=== PATIENT | male | born 1980 | race Caucasian/White ===

== ENCOUNTER 2021-04-16 09:02 | Emergency (ER) | payer MEDICARE, MEDICAID, SELFPAY ==
[2021-04-16 09:09] VITALS: BP 118/80; PULSE 81; RESP 18; TEMP 36.3; O2SAT 98; BMI 30.7
--- NOTE | 2021-04-16 09:22 | ED_ITS ---
HPI - Fall General Chief Complaint: Fall Stated Complaint: fell down 4 stairs Time Seen by Provider: 04/16/21 09:22 Source: patient Mode of arrival: ambulatory Limitations: no limitations History of Present Illness HPI Narrative: Patient is a 40 year old male presenting to the emergency department today with back and elbow pain after falling down stairs. Patient states that he was walking and slipped down some steps. States that he now has back pain and elbow pain. Patient denies any loss of consciousness. Patient states that he does not want any imaging as he does not believe anything is broken, he would just like something for the soreness and a note for work. Patient denies any dizziness, lightheadedness, abdominal pain, nausea, vomiting, fever, chills, blurry vision, double vision, loss of vision, chest pain, difficulty breathing, shortness of breath, night sweats, pain with urination, increased urinary frequency, increased urinary urgency, blood in his urine or stool, syncope or a near syncopal episode, bowel incontinence, bladder incontinence, bowel retention, bladder retention, or any other complaints at this time. MD complaint: fall Onset (ago): hour(s) Fall from: standing Fall witnessed: no Place fall occurred: home Loss of consciousness: none Prolonged down time: no Symptoms prior to fall: none Context: tripped/slipped Location of injury: back Severity: mild Severity scale (1-10): 3 Quality: dull Associated symptoms (after fall): denies Related Data Previous Rx's Medication Instructions Recorded cyclobenzaprine 10 mg tablet 10 mg PO TID PRN 7 Days #21 tab 04/16/21 Allergies Allergy/AdvReac Type Severity Reaction Status Date / Time codeine [CODEINE] Allergy Unknown HIVES Verified 04/16/21 09:08 Review of Systems Verdana 4l Constitutional: Verdana 4d Verdana 4d Constitutional: Verdana 4d Reports no additional constitutional complaints, Denies chills, Denies fever(s) and Denies night sweats Verdana 4l Eyes: Verdana 4d Verdana 4d Eyes: Verdana 4d Reports no additional eye complaints, Denies blurry vision, Denies change in vision, Denies diplopia, Denies eye discharge, Denies loss of vision and Denies eye pain Verdana 4l ENT: Verdana 4d Denies dizziness Verdana 4l Cardiovascular: Verdana 4d Verdana 4d Cardiovascular: Verdana 4d Reports no additional cardiovascular complaints, Denies chest pain, Denies lightheadedness, Denies Loss of Consciousness and Denies dyspnea Verdana 4l Respiratory: Verdana 4d Verdana 4d Respiratory: Verdana 4d Reports no additional respiratory complaints and Denies dyspnea Verdana 4l Gastrointestinal: Verdana 4d Verdana 4d Gastrointestinal: Verdana 4d Reports no additional gastrointestinal complaints, Denies abdominal pain, Denies melena, Denies hematochezia, Denies change in bowel habits and Denies change in stool character Verdana 4l Genitourinary: Verdana 4d Verdana 4d Genitourinary: Verdana 4d Reports no additional male genitourinary complaints, Denies hematuria, Denies oliguria, Denies difficulty urinating, Denies dysuria, Denies urinary frequency, Denies urinary hesitancy, Denies urinary incontinenceincontinence and Denies urinary urgency Musculoskeletal: Musculoskeletal: Reports no additional musculoskeletal complaints, Reports back pain, Denies numbness and Denies tingling Neurologic: Denies dizziness, Denies loss of vision, Denies numbness and Denies tingling Psychiatric: Psychiatric: Reports no additional psychiatric complaints Endocrine: Endocrine: Reports no additional endocrine complaints Hematologic/Lymphatic: Hematologic/Lymphatic: Reports no additional hematologic/lymphatic complaints Allergic/Immunologic: Allergic/Immunologic: Reports no additional allergic/immunologic complaints [facility] Past Medical History Attestation statement: The following information was validated with the patient. 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 Resp 18 04/16/21 09:09 BP 118/80 04/16/21 09:09 Pulse Ox 98 04/16/21 09:09 BMI result Body Mass Index 30.7 Const: General: cooperative, no acute distress, alert and awake Nutritional Appearance: well nourished Orientation/consciousness: patient oriented x3 Limitations: no limitations HENMT: Head: Yes normal to inspection and Yes atraumatic Ears: hearing grossly normal bilaterally and external ears normal General nose exam: Normal external nose present, no nasal discharge noted and no epistaxis Face and sinus: Yes normal facial exam, No abrasion and No laceration Mouth: Normal oral and palatal mucosa present, no drooling and no muffled voice Eyes: General: appearance normal, both eyes and all related structures Periorbital: periorbital findings normal Eyelids: Yes eyelids normal Conjunctivae: conjunctivae normal Pupils: Equal, round and reactive pupils present EOM: EOMs intact bilaterally Neck: Neck: Yes normal visual inspection, Yes full ROM and Yes no lymphadenopathy Chest: Chest palpation & inspection: normal inspection of the chest Resp: Effort & Inspection: normal respiratory effort and able to speak in complete sentences Auscultation: clear to auscultation bilaterally Cardio: Rhythm: regular rhythm Heart sounds: S1 normal heart sound present GI: Inspection: Yes normal to inspection Neuro: General: patient oriented x3 and moves all extremities Cranial nerves: Yes Equal, round and reactive pupils present Cognition (Neuro): normal cognition Motor exam (neuro): 5/5 motor strength present throughout Sensory Exam: Normal double simultaneous stimulation for sensation Coordination: [id number] test normal Extrem: General: Yes normal to inspection, Yes full ROM and Yes capillary refill normal Psych: Appearance: grossly normal Mental Status: mental status grossly normal Affect: normal affect Attitude: cooperative Thought process: Normal thought process present Thought content: Normal thought content present Insight: Good insight present (Psych) MDM - Fall MDM Narrative Medical decision making narrative: Patient is a 40 year old male presenting to the emergency department today with back pain and elbow pain after a fall. Patient's physical exam was unremarkable. I explained my physical exam findings to the patient. I answered all questions asked by the patient. Patient received PO Flexeril which he stated helped his symptoms significantly. I stressed the importance of the patient taking his medication as prescribed. I stressed the importance of the patient following up with his primary care provider. I stressed the importance of the patient returning to the emergency department immediately if his symptoms were to worsen or if he were to develop any numbness, tingling, dizziness, shortness of breath, difficulty breathing, chest pain, blurry vision, loss of vision, nausea, vomiting, abdominal pain, fever, chills, back pain, or any other complaints. Patient verbalized agreement and understanding with this treatment plan and discharge. Differential Diagnosis Differential diagnosis: Unlikely dislocation (fall, back pain, muscle pain) Medical Records Attestation: I reviewed the patient's medical records. Discharge Plan Discharge Clinical Impression: Fall Patient Disposition: Home, Self-Care Instructions: Fall Prevention (ED) Additional Instructions: Follow up with your primary care provider. Return to the emergency department immediately if your symptoms worsen or if you develop any dizziness, shortness of breath, difficulty breathing, chest pain, blurry vision, loss of vision, nausea, vomiting, abdominal pain, fever, chills, back pain, or any other complaints. Prescriptions: New cyclobenzaprine 10 mg tablet 10 mg PO TID PRN (Reason: back pain) 7 Days Qty: 21 0RF Stand Alone Forms: Work/School Release Interventions: ED Discharge Assessment Last Done: 04/16/21 09:47 Discharge Date/Time: 04/16/21 09:48 Print Language: Iranian
[2021-04-16] MEDS: Cyclobenzaprine HCl 10 MG TABLET PO (09:44)
== END 2021-04-16 09:48 | disposition home or self-care (01) ==
PROVIDERS: Emergency Provider Emergency Medicine
DX: M54.9 Dorsalgia, unspecified (principal); M25.529 Pain in unspecified elbow; Z91.81 History of falling
CPT/HCPCS: 99283; 99284

== ENCOUNTER 2022-09-23 08:50 | Emergency (ER) | payer MEDICARE, MEDICAID, SELFPAY ==
[2022-09-23 09:07] VITALS: BP 120/60; PULSE 69; RESP 18; TEMP 36.9; O2SAT 99; BMI 29.2
--- NOTE | 2022-09-23 09:17 | ED.GENADULT ---
HPI - General Adult General Chief complaint: Dental/Oral Stated complaint: dental pain facial swelling Time Seen by Provider: 09/23/22 09:11 Source: patient Mode of arrival: ambulatory Limitations: no limitations History of Present Illness HPI narrative: In is a 42-year-old male with no past medical history presenting with left upper molar dental pain for the past week. Patient reports fever chills, nausea, dizziness, pain radiating up to his head and down his neck. Patient reports that he was sent to the emergency department from work. Patient reports that he attempted to get a an appointment with the dentist but was unable to do so. Patient was told that the dentist told him to come here to get antibiotics before he would be able to be seen by the dentist. Patient reports 10/10 pain, constant. Patient denies night sweats, weight changes, vomiting, chest pain, shortness of breath, numbness, tingling, vision changes, headache, head trauma Related Data Previous Rx's Medication Instructions Recorded cyclobenzaprine 10 mg tablet 10 mg PO TID PRN back pain 7 days 04/16/21 #21 tabs amoxicillin 875 mg-potassium 1 tab PO BID 10 days #20 tabs 09/23/22 clavulanate 125 mg tablet naproxen 500 mg tablet 500 mg PO BID #14 tabs 09/23/22 Allergies Allergy/AdvReac Type Severity Reaction Status Date / Time codeine [CODEINE] Allergy Unknown HIVES Verified 05/23/21 13:26 Review of Systems Review of Systems: Constitutional : No Weight loss, + Fever, + Chills, No Fatigue, No Malaise ENT/Mouth : +dental pain No sore throat, No Rhinorrhea Eyes: No Eye Pain, No Swelling, No Redness Cardiovascular : No Chest Pain, No SOB, No Dyspnea on Exertion, No Orthopnea, No Edema, No Palpitations Respiratory : No Cough, No Sputum, No Wheezing Gastrointestinal : + Nausea, No Vomiting, No Diarrhea, No Constipation, No abdominal Pain, No Hematochezia, No Melena Genitourinary : No Dysuria, No Urinary Frequency, No Hematuria, Musculoskeletal : No joint pain, No Myalgias, No Joint Swelling Skin : No Skin Lesions, No rash Neuro : No Weakness, No Numbness, +Dizziness, + Headache All other systems reviewed and are negative Yes all other systems are reviewed and are negative PMFSH Past Medical History Attestation statement: The following information was validated with the patient. Source: old records reviewed and nursing notes reviewed Medical History Anxiety No known health problems No known health problems Social History Social History (System 05/23/21 @ 13:26 by Coral Coreas) Advance Directives: No Advance Directives Information Provided: No Physical Exam ED Vital Signs: Vital Signs - 24 hr 09/23/22 09:07 Temperature 98.4 F Pulse Rate 69 Respiratory Rate 18 Blood Pressure 120/60 Pulse Oximetry 99 Oxygen Delivery Method Room Air BMI result Body Mass Index 29.2 vss Appearance: Alert.? Oriented X3.? No acute distress.? Head: Normocephalic, atraumatic, no step-offs or deformities Eyes: Pupils equal, round and reactive to light.? ENT: Pharynx normal, patent airway, speaking in full sentences controlling secretions well. Mild swelling to L cheek w/o overlying fluctuance. Mild errythema to L cheek. TTP to tooth 14-15 with errythema to a/c gum ? developing abcess however no fluctuance at this time. No trismus. Poor dention throughout dental caries noted, hallitosis and multiples fx to teeth. CVS: Normal heart rate and rhythm.? Pulses normal.? Respiratory: No respiratory distress.? Breath sounds normal.? Abdomen: Soft and nontender.? Skin: Skin warm and dry.? Normal skin color.? Normal skin turgor.? Extremities: No lower extremity edema.? No calf ttp. 5/5 strength to bilateral upper and lower extremities Back: No midline tenderness, no C-spine tenderness, full range of motion, no CVA tenderness bilaterally Neuro: Oriented X 3.? No motor deficit.? No sensory deficit. CN 2-12 intact Course Reevaluation(s) Reevaluation #1: Patient will be discharged home with Augmentin and naproxen for pain. Advised to follow-up with dentist as soon as possible. Educated patient on diagnosis and treatment plan, answered all question, patient verbalizes understanding. At this time patient will be discharged home, advised to return with new or worsening symptoms. Educated on worrisome signs and symptoms and when to return. At this time I feel comfortable discharge home. Time: 10:09 Medical Decision Making Medical Decision Making [facility] Narrative: 42-year-old male presents with left upper molar pain for 1 week with associated facial swelling on the left side. Physical exam Pharynx normal, patent airway, speaking in full sentences controlling secretions well. Mild swelling to L cheek w/o overlying fluctuance. Mild errythema to L cheek. TTP to tooth 14-15 with errythema to a/c gum ? developing abcess however no fluctuance at this time. No trismus. Poor dention throughout dental caries noted, hallitosis and multiples fx to teeth. history and physical exam consistent with poor dentition, dental caries, gingivitis, and possible dental fracture with early/ developing dental abscess. L cheek swelling likely cellulitis again no signs of abscess. Unlikely abscess, Necrotizing infection, David's angina. plan: discharge home with antibiotics and pain management. Differential Diagnosis Differential Diagnoses: The differential diagnosis associated with the presentation includes history and physical exam consistent with poor dentition, dental caries, gingivitis, and possible dental fracture with early/ developing dental abscess. L cheek swelling likely cellulitis again no signs of abscess. Unlikely abscess, Necrotizing infection, David's angina. Admission/Observation Consideration of admission/observation: Escalation of care including admission/observation considered Not indicated Tests considered The following testing was considered but not selected: labs and imaging not indicated low supsion for necrotizing infefction or abscess. Core Measures AMI core measures followed: Yes Measure exclusions: not indicated Critical Care Time Critical Care Time Critical Care Time: No Discharge Plan Discharge Clinical Impression: Toothache Patient Disposition: Home, Self-Care Instructions: Toothache (ED) Additional Instructions: Take your medications as prescribed. If you were prescribed antibiotics today, it is important that you take your medication to their entirety, do not skip any doses, do not finish them early. Follow-up with your primary care provider this week. Return to the emergency department with new or worsening symptoms. In case of emergency call 911 Prescriptions: New amoxicillin-pot clavulanate 875-125 mg tablet 1 tab PO BID 10 Days Qty: 20 0RF naproxen 500 mg tablet 500 mg PO BID Qty: 14 0RF No Action cyclobenzaprine 10 mg tablet 10 mg PO TID PRN (Reason: back pain) 7 Days Qty: 21 0RF Stand Alone Forms: Work/School Release
== END 2022-09-23 10:03 | disposition home or self-care (01) ==
PROVIDERS: Emergency Provider Emergency Medicine
DX: K08.89 Other specified disorders of teeth and supporting structures (principal)
CPT/HCPCS: 99282; 99283

== ENCOUNTER 2023-03-24 12:40 | Emergency (ER) | payer MEDICARE, MEDICAID, SELFPAY ==
--- NOTE | 2023-03-24 12:50 | ED.GENADULT ---
HPI - General Adult General Chief complaint: Upper Respiratory Symptoms Stated complaint: body aches dizzy Time Seen by Provider: 03/24/23 13:23 Source: patient Mode of arrival: ambulatory Limitations: no limitations History of Present Illness HPI narrative: Patient is a 42 year old assigned male at with no reported medical history presenting to the emergency department today with fever and chills. Patient states that over the last 2 days he has had fever and chills. Patient denies any dizziness, lightheadedness, abdominal pain, nausea, vomiting, blurry vision, double vision, loss of vision, chest pain, difficulty breathing, shortness of breath, back pain, night sweats, pain with urination, increased urinary frequency, increased urinary urgency, blood in his urine or stool, syncope or a near syncopal episode, recent trauma or falls, bowel incontinence, bladder incontinence, bowel retention, bladder retention, or any other complaints at this time. Onset (ago): day(s) (2) Severity: mild Severity scale (1-10): 2 Relieving factors: none Exacerbating factors: none Associated symptoms: fever/chills Treatments prior to arrival: other (tylenol) Related Data Previous Rx's Medication Instructions Recorded cyclobenzaprine 10 mg tablet 10 mg PO TID PRN back pain 7 days 04/16/21 #21 tabs amoxicillin 875 mg-potassium 1 tab PO BID 10 days #20 tabs 09/23/22 clavulanate 125 mg tablet naproxen 500 mg tablet 500 mg PO BID #14 tabs 09/23/22 oseltamivir 75 mg capsule (Tamiflu) 75 mg PO DAILY 5 days #5 caps 03/24/23 Allergies Allergy/AdvReac Type Severity Reaction Status Date / Time codeine [CODEINE] Allergy Unknown HIVES Verified 03/24/23 12:51 Review of Systems Constitutional: Constitutional: Reports no additional constitutional complaints, Reports chills, Reports fever(s) and Denies night sweats Eyes: Eyes: Reports no additional eye complaints, Denies blurry vision, Denies change in vision, Denies diplopia, Denies eye discharge, Denies loss of vision and Denies eye pain ENT: Denies dizziness Cardiovascular: Cardiovascular: Reports no additional cardiovascular complaints, Denies chest pain, Denies lightheadedness, Denies Loss of Consciousness and Denies dyspnea Respiratory: Respiratory: Reports no additional respiratory complaints and Denies dyspnea Gastrointestinal: Gastrointestinal: Reports no additional gastrointestinal complaints, Denies abdominal pain, Denies melena, Denies hematochezia, Denies change in bowel habits and Denies change in stool character Genitourinary: Genitourinary: Reports no additional male genitourinary complaints, Denies hematuria, Denies oliguria, Denies difficulty urinating, Denies dysuria, Denies urinary frequency, Denies urinary hesitancy, Denies urinary incontinence and Denies urinary urgency Musculoskeletal: Musculoskeletal: Reports no additional musculoskeletal complaints, Denies numbness and Denies tingling Neurologic: Denies dizziness, Denies loss of vision, Denies numbness and Denies tingling Psychiatric: Psychiatric: Reports no additional psychiatric complaints Endocrine: Endocrine: Reports no additional endocrine complaints Hematologic/Lymphatic: Hematologic/Lymphatic: Reports no additional hematologic/lymphatic complaints Allergic/Immunologic: Allergic/Immunologic: Reports no additional allergic/immunologic complaints PMFSH Past Medical History Attestation statement: The following information was validated with the patient. Source: old records reviewed and nursing notes reviewed Onset Date is defined in the Problem List Problems that require an onset date and time if occurred within 24 hrs of arrival to the ED Aortic Dissection and Rupture; Neurologic impairment; Cardiopulmonary Arrest; Endotracheal Intubation; Insertion or Replacement of Mechanical Circulatory Assist Device Medical History Anxiety No known health problems No known health problems Social History Social History Advance Directives: No Advance Directives Information Provided: No Physical Exam ED Vital Signs: Vital Signs - 24 hr 03/24/23 12:51 Temperature 98.4 F Pulse Rate 77 Respiratory Rate 18 Blood Pressure 104/70 Pulse Oximetry 97 Oxygen Delivery Method Room Air BMI result Body Mass Index 28.6 Const General: cooperative, no acute distress, alert and awake Nutritional Appearance: well nourished Orientation/consciousness: patient oriented x3 Limitations: no limitations HENMT Head: Yes normal to inspection and Yes atraumatic Ears: hearing grossly normal bilaterally and external ears normal General nose exam: Normal external nose present, no nasal discharge noted and no epistaxis Face and sinus: Yes normal facial exam, No abrasion and No laceration Mouth: Normal oral and palatal mucosa present, no drooling and no muffled voice Eyes General: appearance normal, both eyes and all related structures Periorbital: periorbital findings normal Eyelids: Yes eyelids normal Conjunctivae: conjunctivae normal Pupils: Equal, round and reactive pupils present EOM: EOMs intact bilaterally Neck Neck: Yes normal visual inspection, Yes full ROM and Yes no lymphadenopathy Chest Chest palpation & inspection: normal inspection of the chest Resp Effort & Inspection: normal respiratory effort and able to speak in complete sentences GI Inspection: Yes normal to inspection Neuro General: patient oriented x3 and moves all extremities Cranial nerves: Yes Equal, round and reactive pupils present Cognition (Neuro): normal cognition Motor exam (neuro): 5/5 motor strength present throughout Sensory Exam: Normal double simultaneous stimulation for sensation Coordination: [id number] test normal Extrem General: Yes normal to inspection, Yes full ROM and Yes capillary refill normal Psych Appearance: grossly normal Mental Status: mental status grossly normal Affect: normal affect Attitude: cooperative Thought process: Normal thought process present Thought content: Normal thought content present Insight: Good insight present (Psych) Course Course Course Narrative: RME:?42 yo male here w/ body aches, chills, dizziness, loss of taste x2 days. taking tylenol and ibuprofen at home. last dose tylenol at 1100 [address]. felt like this 2 yrs ago when he had covid. Has not taken a covid test. plan for serology. Full HPI, ROS and PE to be performed by the primary ED provider. Medical Decision Making Medical Decision Making [facility] Narrative: Patient is a 42 year old assigned male at with no reported medical history presenting to the emergency department today with fever and chills. Patient's physical exam was unremarkable. Patient's COVID-19 test was negative. Patient's influenza test was positive. I explained my physical exam findings as well as all test results to the patient. I answered all questions asked by the patient. I stressed the importance of the patient taking his medication as prescribed. I stressed the importance of the patient following up with his primary care provider. I stressed the importance of the patient returning to the emergency department immediately if his symptoms were to worsen or if he were to develop any dizziness, shortness of breath, difficulty breathing, chest pain, blurry vision, loss of vision, nausea, vomiting, abdominal pain, fever, chills, back pain, or any other complaints. Patient verbalized agreement and understanding with this treatment plan and discharge. Differential Diagnosis Differential Diagnoses: The differential diagnosis associated with the presentation includes Influenza COVID-19 Viral illness URI Fever Chills Admission/Observation Consideration of admission/observation: Escalation of care including admission/observation considered Patient would have been admitted to the hospital had his work up had any findings where hospital admission was appropriate and his clinical presentation warranted hospital admission. Lab Data [facility] Lab Attestation statement: I reviewed the patient's lab results. My interpretation of these results are in the [facility] Rationale portion of this note. Labs: Lab Results 03/24/23 Range/Units 12:58 COVID-19 (TONY) Negative (Negative) COVID-19 Clin Com See Note Influenza Type A (VICKY) Positive A (Negative) Influenza Type B (VICKY) Negative (Negative) Influenza A & B Note See Note Prescription Management I considered prescription management with: Antiviral (patient prescribed tamiflu.) Discharge Plan Discharge Clinical Impression: Influenza Patient Disposition: Home, Self-Care Instructions: Influenza (DC) Additional Instructions: Follow up with your primary care provider. Return to the emergency department immediately if your symptoms worsen or if you develop any dizziness, shortness of breath, difficulty breathing, chest pain, blurry vision, loss of vision, nausea, vomiting, abdominal pain, fever, chills, back pain, or any other complaints. Prescriptions: New oseltamivir [Tamiflu] 75 mg capsule 75 mg PO DAILY 5 Days Qty: 5 0RF No Action cyclobenzaprine 10 mg tablet 10 mg PO TID PRN (Reason: back pain) 7 Days Qty: 21 0RF amoxicillin-pot clavulanate 875-125 mg tablet 1 tab PO BID 10 Days Qty: 20 0RF naproxen 500 mg tablet 500 mg PO BID Qty: 14 0RF Referrals: [facility] [place] Family Medicine [Provider Group] (Call to establish and follow up with a primary care provider. If you already have a primary care provider, please follow up with them.) [facility] [place] Primary [facility] [Provider Group] (Call to establish and follow up with a primary care provider. If you already have a primary care provider, please follow up with them.) [facility] [place] Primary [facility] [Provider Group] (Call to establish and follow up with a primary care provider. If you already have a primary care provider, please follow up with them.) Stand Alone Forms: Work/School Release Interventions: ED Discharge Assessment Last Done: 03/24/23 13:48 Discharge Date/Time: 03/24/23 13:48 Print Language: Spanish
[2023-03-24 12:51] VITALS: BP 104/70; PULSE 77; RESP 18; TEMP 36.9; O2SAT 97; BMI 28.6
[2023-03-24 13:18] LABS: COVID-19 Test Negative (Negative); IDNOW Serial# 152EDE1D
[2023-03-24 13:19] LABS: IDNOW Serial# 08D9AD1C; Influenza A Positive (Negative); Influenza B2 Negative (Negative)
== END 2023-03-24 13:48 | disposition home or self-care (01) ==
PROVIDERS: Physician Assistant Medical; Emergency Provider Emergency Medicine
DX: J10.1 Influenza due to other identified influenza virus with other respiratory manifestations (principal); M79.10 Myalgia, unspecified site; R42 Dizziness and giddiness; Z11.52 Encounter for screening for COVID-19; Z20.828 Contact with and (suspected) exposure to other viral communicable diseases
CPT/HCPCS: 87502; 87635; 99282; 99283

== ENCOUNTER 2023-07-22 13:32 | Emergency (ER) | payer OTHER, SELFPAY ==
--- NOTE | ~2023-07-22 | XR_ITS ---
EXAMINATION: LEFT ANKLE, LEFT FOOT CLINICAL INFORMATION: Ankle and foot pain COMPARISON: None available. TECHNIQUE: 3 views left ankle, 3 views left foot FINDINGS: There is a small avulsion fracture arising from the distal cuboid with associated soft tissue swelling laterally. The ankle and foot otherwise appear normal with no additional fractures. XR/XR foot LT 2V IMPRESSION: Small avulsion fracture distal cuboid.
--- NOTE | ~2023-07-22 | XR_ITS ---
EXAMINATION: LEFT ANKLE, LEFT FOOT CLINICAL INFORMATION: Ankle and foot pain COMPARISON: None available. TECHNIQUE: 3 views left ankle, 3 views left foot FINDINGS: There is a small avulsion fracture arising from the distal cuboid with associated soft tissue swelling laterally. The ankle and foot otherwise appear normal with no additional fractures. XR/XR ankle LT min 3V IMPRESSION: Small avulsion fracture distal cuboid.
[2023-07-22 14:15] VITALS: BP 113/78; PULSE 99; RESP 18; TEMP 36.8; O2SAT 98; BMI 29.3
--- NOTE | 2023-07-22 14:19 | ED_ITS ---
HPI - General Adult General Chief complaint: Extremity Injury, Lower Stated complaint: L Foot Pain Work Injury 07/22/23 Source: patient Mode of arrival: ambulatory Limitations: no limitations History of Present Illness HPI narrative: 42 yold male with pmh of anxiety presents to the ED for left foot pain. Patient was at work and than he rolled his ankle and heard a crack in his foot. Patient denies falling unto the ground. Related Data Previous Rx's ?Medication ?Instructions ?Recorded cyclobenzaprine 10 mg tablet 10 mg PO TID PRN back pain 7 days 04/16/21 #21 tabs amoxicillin 875 mg-potassium 1 tab PO BID 10 days #20 tabs 09/23/22 clavulanate 125 mg tablet naproxen 500 mg tablet 500 mg PO BID #14 tabs 09/23/22 oseltamivir 75 mg capsule (Tamiflu) 75 mg PO DAILY 5 days #5 caps 03/24/23 naproxen 500 mg tablet 500 mg PO BID PRN pain 7 days #14 07/22/23 tabs Allergies Allergy/AdvReac Type Severity Reaction Status Date / Time codeine [CODEINE] Allergy Unknown HIVES Verified 07/22/23 14:19 Review of Systems 2 Review of Systems: left foot/ankle pain Yes all other systems are reviewed and are negative [facility] Past Medical History Medical History Anxiety No known health problems No known health problems Physical Exam ED Vital Signs: Vital Signs - 24 hr 07/22/23 14:15 Temperature 98.3 F Pulse Rate 99 Respiratory Rate 18 Blood Pressure 113/78 Pulse Oximetry 98 Oxygen Delivery Method Room Air BMI result Body Mass Index 29.3 Const General: cooperative, healthy appearing, comfortable, no acute distress, well developed, alert, awake and Physically active Orientation/consciousness: oriented to person, oriented to place, oriented to time and patient oriented x3 HENMT Head: Yes normal to inspection, Yes No palpable skull fracture present, Yes normocephalic and Yes atraumatic Eyes General: appearance normal, both eyes and all related structures Neck Neck: Yes normal visual inspection, Yes full ROM, Yes no lymphadenopathy, Yes no meningeal signs, Yes trachea midline, Yes supple, No anterior neck swelling and No tender Chest Chest palpation & inspection: normal inspection of the chest and normal palpation of entire chest wall Resp Effort & Inspection: normal respiratory effort and able to speak in complete sentences Auscultation: clear to auscultation bilaterally Cardio Jugular venous distension: no JVD Heart sounds: S1 normal heart sound present and S2 normal heart sound present GI Inspection: Yes normal to inspection and No abdominal wall ecchymosis Palpation (GI): Soft to palpation, not firm, nontender, no guarding and not rigid General: No CVA tenderness and Yes no CVA tenderness Back/Spine/Pelvis Back: no CVA tenderness, No CVA tenderness and No back tenderness Skin General skin exam: no rashes or lesions noted, elasticity normal and turgor normal Neuro General: oriented to person, oriented to place, oriented to time, patient oriented x3, gait normal, tone normal, moves all extremities, Normal light touch and pain sensation, no meningeal signs, no focal motor deficits, CN's II-XI intact bilaterally and normal sensation to monofilament Cranial nerves: Yes CN's II-XII intact bilaterally Extrem General: Yes normal to inspection, Yes full ROM and Yes capillary refill normal Ankle/foot/toe images: 2 1. positive for tenderness and ecchymosis. negative for crepitus,redness, coldness, hotness, or profuse deformity. Motor, neuro, and vascular exam is intact. 2. positive for tenderness and ecchymosis. negative for crepitus,redness, coldness, hotness, or profuse deformity. Motor, neuro, and vascular exam is intact. Psych Appearance: grossly normal, well kempt and not disheveled Course Course Course Narrative: RME: Triage done by NOE Hansen. 42 yold male presents to the ED for left ankle pain. patinet stated twisted ankle at home. Left ankle positive for swelling and ecchymosis with tenderness. pedal pulses intact. patient able to ambulate. xrays ordered Medications Administered Discontinued Medications Generic Name Dose Route Start Last Admin Trade Name Freq PRN Reason Stop Dose Admin Ibuprofen 800 mg 07/22/23 14:18 07/22/23 14:22 Ibuprofen 800 Mg Tablet PO 07/22/23 14:19 800 mg ONCE ONE Administration Medical Decision Making Medical Decision Making MDM Narrative: RME: 42-year-old male presents to ED for left foot pain after stepping on wood rolling left ankle. Patient denies fall to the ground or hitting head. Patient denies any other complaint. Physical exam positive for left lateral malleolus swelling. Ankle x-ray negative. Foot x-ray shows positive avulsion cuboid fracture. Patient tolerate weight-bearing. Patient is placed in walking boot and given crutches. Patient will be discharged with pain medication. Motor neurovascular exam intact extremity. Patient informed to follow-up with orthopedic surgery. Negative for compartment syndrome, cellulitis, dvt, or arterial occlusion Differential Diagnosis Differential Diagnoses: The differential diagnosis associated with the presentation includes (Ankle foot fracture. Dislocation) Admission/Observation Consideration of admission/observation: Escalation of care including admission/observation considered Independent Interpretation I performed an independent interpretation of an: Plain X-Ray Radiology Impression Discussion of test interpretation with radiology: I have reviewed the radiologist's reading. Independent Historian Clinical information obtained from an independent historian. History obtained from or confirmed by: Other (Patient) External Record Review External record reviewed: Other (Prior visits) Prescription Management I considered prescription management with: Pain Medication Discharge Plan Discharge Clinical Impression: Avulsion fracture, Foot fracture, left Patient Disposition: Home, Self-Care Instructions: Foot Fracture in Adults (ED) Additional Instructions: Recommend follow-up with orthopedic surgeon and were connection. Return to the ED for severe pain, increased bluish black discoloration, increased swelling, calf pain, chest pain, shortness of breath, redness, or any other concerning symptoms. Prescriptions: New naproxen 500 mg tablet 500 mg PO BID PRN (Reason: pain) 7 Days Qty: 14 0RF No Action cyclobenzaprine 10 mg tablet 10 mg PO TID PRN (Reason: back pain) 7 Days Qty: 21 0RF oseltamivir [Tamiflu] 75 mg capsule 75 mg PO DAILY 5 Days Qty: 5 0RF amoxicillin-pot clavulanate 875-125 mg tablet 1 tab PO BID 10 Days Qty: 20 0RF naproxen 500 mg tablet 500 mg PO BID Qty: 14 0RF Referrals: [facility] [place] [facility] [Provider Group] (Avulsion cuboid fracture) Work Connection [Outside] (Left avulsion cuboid fracture) Stand Alone Forms: Work/School Release Interventions: ED Discharge Assessment Last Done: 07/22/23 18:59 Discharge Date/Time: 07/22/23 19:01 Print Language: [place]
[2023-07-22] MEDS: Ibuprofen 800 MG TABLET PO (14:22)
[2023-07-22 18:59] VITALS: BP 113/78; PULSE 99; RESP 18; TEMP 36.8; O2SAT 98
== END 2023-07-22 19:01 | disposition home or self-care (01) ==
PROVIDERS: Emergency Provider Emergency Medicine
DX: S92.212A Displaced fracture of cuboid bone of left foot, initial encounter for closed fracture (principal); M79.672 Pain in left foot; X50.1XXA Overexertion from prolonged static or awkward postures, initial encounter; Y93.89 Activity, other specified; Y92.812 Truck as the place of occurrence of the external cause; Y99.0 Civilian activity done for income or pay
CPT/HCPCS: 73610; 73620; 99283

== ENCOUNTER → 2023-07-23 13:03 | Outpatient (BNVA) | payer OTHER, SELFPAY | PROVIDERS: Visit Provider Physician Assistant Medical | DX: S92.215A Nondisplaced fracture of cuboid bone of left foot, initial encounter for closed fracture (principal); X58.XXXA Exposure to other specified factors, initial encounter | CPT/HCPCS: 99203 ==

== ENCOUNTER 2023-07-25 14:07 | Outpatient (AMB) | payer OTHER, SELFPAY ==
--- NOTE | 2023-07-25 14:11 | A.OFFVIS_ITS ---
Vital Signs 07/25/23 14:16 Height 5 ft 11 in Weight 210 lb BMI 29.3 Intake Visit Reasons: FC- L Foot Pain Work Injury 07/22/23 Intake Note: Rosas is a 42 year old male who presents today for a evaluation of his left foot injury, DOI 07/22/23. Patient reports he was at work and rolled his ankle when he heard a crack in his left foot. Patient denies falling. Currently is feeling better, however he is still having dull pain on the lateral aspect of the left foot. He finds relief when he is wearing his boot. Allergies codeine [CODEINE] Allergy (Unknown, Verified 07/25/23 14:14) HIVES HPI HPI FC- L Foot Pain Work Injury 07/22/23: Details: 42-year-old male who presents in the office today, as a new patient, for an evaluation of left foot pain. Patient presented to the ED on 07/22/2023 status post a work-related injury when he stepped on wood, rolled his ankle and heard a crack in his left foot. X-rays were obtained. He was placed in a walking boot and given crutches. Patient was seen by work connection who referred him to Orthopedics. While in the office today the patient reports he was at work when he rolled his ankle, and he heard a crack. He denies any fall. He states he is able to walk with the boot and has comfort but feels unstable out of the it. He reports a dull pain on the lateral aspect of the left foot. Patient is currently out of work. 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 Tenderness to palpation over the medial and lateral malleolus. Able to slightly dorsiflex and plantarflex but is limited due to pain. Resolving ecchymosis along the dorsal aspect of the left foot. Sensation intact. Pedal pulse intact. Assessment & Plan Assessment & Plan (1) Moderate left ankle sprain: Code(s): S93.402A - Sprain of unspecified ligament of left ankle, initial encounter Category: Medical Qualifiers: Encounter type: initial encounter Qualified Code(s): S93.402A - Sprain of unspecified ligament of left ankle, initial encounter Plan Mr. Mccormack is a 42-year-old male who presents in the office today, as a new patient, for an evaluation of left foot pain. Patient presented to the ED on 07/22/2023 status post a work-related injury when he stepped on wood, rolled his ankle and heard a crack in his left foot. X-rays were obtained. He was placed in a walking boot and given crutches. Patient was seen by work connection who referred him to Orthopedics. While in the office today the patient reports he was at work when he rolled his ankle, and he heard a crack. He denies any fall. He states he is able to walk with the boot and has comfort but feels unstable out of the it. He reports a dull pain on the lateral aspect of the left foot. Patient is currently out of work. The patient will remain in the boot for an additional 3 weeks. An order for physical therapy was placed today. He was given a light duty work note stating he may perform sedentary work only in the boot. Follow up will be in 3 weeks, or sooner if needed. X-rays of the foot and ankle, obtained on 07/22/2023, revealed: Small avulsion fracture distal cuboid. Medications: Discontinued cyclobenzaprine Discontinued Reason: Patient no longer taking 10 mg PO TID 7 days PRN 21 tabs 0RF back pain amoxicillin-pot clavulanate 875-125 mg Discontinued Reason: Patient no longer taking 1 tab PO BID 10 days 20 tabs 0RF naproxen Discontinued Reason: Patient no longer taking 500 mg PO BID 14 tabs 0RF oseltamivir (Tamiflu) Discontinued Reason: Patient no longer taking 75 mg PO DAILY 5 days 5 caps 0RF Patient Instructions: Scribed by Callie Velazco medical technologist chemistry, for Sravani King PA-C on 07/25/2023 at 2:18 pm, EST. Coding Level of Care Code New Pt Level 4 (37589) Diagnoses Moderate left ankle sprain, initial encounter S93.402A Encounter type: initial encounter
[2023-07-25 14:16] VITALS: BMI 29.3
== END 2023-07-25 14:24 | disposition home or self-care (01) ==
PROVIDERS: Visit Provider Physician Assistant
DX: S93.402A Sprain of unspecified ligament of left ankle, initial encounter (principal)
CPT/HCPCS: 99204

== ENCOUNTER → 2023-07-25 14:07 | Outpatient (BNVA) | payer OTHER, SELFPAY | PROVIDERS: Visit Provider Physician Assistant | DX: S93.402A Sprain of unspecified ligament of left ankle, initial encounter (principal) | CPT/HCPCS: 99202 ==

== ENCOUNTER 2023-08-13 09:18 | Outpatient (RCR) | payer OTHER, SELFPAY ==
--- NOTE | 2023-08-13 12:56 | MHC.PT.EP ---
[facility] [place] Office [place] Office [place] Office [address] Matias Otto [address] [phone] F: [phone] F: [phone] F: [phone] F: [phone] Physical Therapy Plan of Care Date of Evaluation: 08/13/23 Date of Surgery: Diagnosis: Sprain of unspecified ligament of L ankle. Assessment: Pt is a 42 y/o male referred to PT for eval and treat of moderate sprain of unspecified ligament of L ankle who presents with finding and symptoms consistent with L cuboid avulsion fracture which he reports occurred at work on 07/22/23 resulting in decreased tolerance and ability for standing and walking, lifting objects from the floor, performing squatting activities, performing heavy HH chores, negotiating stairs and curbs, as well as entering and exiting a vehicle secondary to decreased L ankle ROM and strength, significant TTP of L foot, gait abnormality, visual swelling, pain with activity and pain at rest. Pt is deemed an appropriate candidate to receive skilled PT services to address their physical impairments in order to improve their functional ability. Frequency and Duration: The patient will be seen 2 x/ wk x 6 wks. Short Term Goals: initiate home program. Improve baseline pain to < 5/10; initial: 8/10. DARCIE bishop DC SPC . Snf Goals: I with home program. Pt will negotiate stairs with at most a little bit of difficulty. Improve LEFI by at least 9 points. Pt will be able to walk 2 blocks with at most a little bit of difficulty. Treatment Plan: Modalities to reduce pain, spasms and effusion. Manual therapy to restore motion and function. Therapeutic exercise to improve strength and flexibility. Neuromuscular re-education for posture and balance. Therapeutic activities to return to functional activities of daily living. Electronically signed by: Mukesh Ferguson PT. Please sign and return to therapist. Thank you for your referral.
--- NOTE | 2023-11-28 07:35 | MHC.PT.DC ---
[facility] [place] Office [place] Office [place] Office [address] Matias Otto [address] [phone] F: [phone] F: [phone] F: [phone] F: [phone] Physical Therapy Discharge Report Diagnosis: Sprain of unspecified ligament of L ankle. Date of Surgery: Date of Evaluation: 08/13/23 Date of Discharge: 11/28/23 Treatments to Date: 1 Cancellations to Date: 2 No Shows to Date: 5 Discharge Status: Visit Non-compliance Discharge Summary: Pt logged 2 cancelled and 5 no show appointments and is DC'd d/t attendance policy. Electronically signed by: Mukesh Ferguson PT. Please sign and return to therapist. Thank you for your referral.
== END 2023-11-28 07:36 | disposition home or self-care (01) ==
LOC: HO.PT 09:18
PROVIDERS: Visit Provider Physician Assistant
DX: S93.402D Sprain of unspecified ligament of left ankle, subsequent encounter (principal)
CPT/HCPCS: 97110; 97161

== ENCOUNTER 2023-08-22 09:03 | Outpatient (REF) | payer OTHER, SELFPAY ==
--- NOTE | ~2023-08-22 | XR_ITS ---
EXAMINATION: XR FOOT, LEFT CLINICAL INFORMATION: Pain in the left foot COMPARISON: X-rays of the left foot, 2023 TECHNIQUE: AP, lateral, and oblique views of the left foot. FINDINGS: Possible subtle fracture along the anterolateral aspect of the cuboid at the fifth tarsometatarsal joint Remaining bones joints soft tissues are unremarkable XR/XR foot LT min 3V IMPRESSION: Possible subtle fracture along the anterolateral aspect of the cuboid at the fifth tarsometatarsal joint. Similar findings noted previously
== END 2023-08-22 09:04 | disposition home or self-care (01) ==
LOC: HO.HOSX 09:03
PROVIDERS: Visit Provider Physician Assistant
DX: S93.402A Sprain of unspecified ligament of left ankle, initial encounter (principal)
CPT/HCPCS: 73630; 99212

== ENCOUNTER 2023-08-22 13:38 | Outpatient (AMB) | payer OTHER, SELFPAY ==
--- NOTE | 2023-08-22 13:42 | A.OFFVIS_ITS ---
Intake Visit Reasons: OV-L Foot Pain Work Injury 07/22/23- Intake Note: Rosas is a 42 year old male who presents to the office today for L foot pain due to a work injury on 07/22/23. Pt states he was loading a truck and as he was getting off the zeeshan there was a piece of wood that he twisted his foot/ankle on. Pt states he isnt in muhc pain now. He was given a walking boot that he has been using everyday since his injury. He states he has been doing PT 2x a week which is he thinks is helping. Allergies codeine [CODEINE] Allergy (Unknown, Verified 08/22/23 13:43) HIVES HPI HPI OV-L Foot Pain Work Injury 07/22/23-: Details: 42-year-old male who presents in the office today for a follow-up of a left ankle sprain that occurred on 07/22/2023 status post a work-related injury when he stepped on wood causing him to roll his left ankle. I last saw the patient in the office on 07/25/2023 when he was to remain in the walking boot and referred to physical therapy. He was also given a light duty work note stating he is to perform sedentary work only while in the boot. While in the office today the patient reports he is not in ?much? pain. He confirms the use of the walking boot daily. He also confirms attending physical therapy twice a week, which he feels is helping. 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 No ecchymosis, erythema, or edema. Patient is able to demonstrate dorsiflexion, plantar flexion, pronation and supination. Negative anterior drawer. Sensation intact. Pedal Pulse intact. Assessment & Plan Assessment & Plan (1) Moderate left ankle sprain: Code(s): S93.402A - Sprain of unspecified ligament of left ankle, initial encounter Category: Medical Qualifiers: Encounter type: initial encounter Qualified Code(s): S93.402A - Sprain of unspecified ligament of left ankle, initial encounter Plan Mr. Mccormack is a 42-year-old male who presents in the office today for a follow-up of a left ankle sprain that occurred on 07/22/2023 status post a work-related injury when he stepped on wood causing him to roll his left ankle. I last saw the patient in the office on 07/25/2023 when he was to remain in the walking boot and referred to physical therapy. He was also given a light duty work note stating he is to perform sedentary work only while in the boot. While in the office today the patient reports he is not in ?much? pain. He confirms the use of the walking boot daily. He also confirms attending physical therapy twice a week, which he feels is helping. The patient can discontinue the use of the boot at this time. He will continue to work with physical therapy. He would like to return to work full-time regular duty, which a note was given today. Follow-up will be PRN, or sooner if needed. X-rays of the left ankle which were obtained while in the office today and were reviewed by me, Sravani King PA-C, revealed routine healing. Orders: Orders XR foot LT min 3V 08/22/23 M79.673 - Pain in unspecified foot Patient Instructions: Scribed by Callie Velazco medical auditor, for Sravani King PA-C on 08/22/2023 at 1:45 pm, EST. Coding Level of Care Code Est Pt Level 3 (04686) Diagnoses Moderate left ankle sprain, initial encounter S93.402A Encounter type: initial encounter
== END 2023-08-22 14:23 | disposition home or self-care (01) ==
PROVIDERS: Visit Provider Physician Assistant
DX: S93.402A Sprain of unspecified ligament of left ankle, initial encounter (principal)
CPT/HCPCS: 99213